=== PATIENT | female | born 1950 | race Asian ===

== ENCOUNTER 2017-12-19 22:38 | Emergency (ER) | payer MEDICARE, MEDICAID ==
--- NOTE | 2017-12-20 | RAD ---
RADIOGRAPH OF CHEST FRONTAL VIEW 12/19/17 COMPARISON: None available. INDICATION: Flu, short of breath. FINDINGS: No lobar consolidation, effusion or pneumothorax. The cardiac silhouette is accentuated by portable t echnique. There are leads overlying the chest limiting visualization. IMPRESSION: No focal consolidation. POS: [facility]
[2017-12-20 00:01] LABS: #Eosinphils 0.1 thou/uL (0.0-0.7); #Lymphocytes 2.3 thou/uL (1.20-3.40); #Monocytes 0.6 thou/uL (0.11-0.59); #Neutrophils 2.5 thou/uL (1.40-6.50); %Basophils 0.8 % (0.0-1.0); %Eosinophils 1.7 % (0.0-10.0); %Lymphocytes 40.9 % (21.0-51.0); %Monocytes 11.1 % (0.0-10.0); %Neutrophils 45.5 % (42.0-75.0); Hemoglobin 13.8 g/dL (12.0-16.0); Mean Corpuscular HGB CONC 32.7 g/dL (32.0-36.0); Mean Corpuscular Hemoglobin 33.2 pg (27.0-31.0); Mean Platelet Volume 7.5 fL (7.4-10.4); Platelet Count 180 thou/uL (130-400); RBC Distribution Width 11.2 % (11.5-14.5); Red Blood Cell (RBC) Count 4.16 mill/uL (4.20-5.40); White Blood Cell (WBC) Count 5.5 thou/uL (4.8-10.8)
[2017-12-20 00:25] LABS: ALT (SGPT) 32 U/L (8-55); AST (SGOT) 24 U/L (5-34); Albumin 3.7 g/dL (3.4-4.8); Alkaline Phosphatase 88 U/L (40-150); Anion Gap 11 mmol/L (10-20); BUN (Urea Nitrogen) 12 mg/dL (9.8-20.1); Bilirubin, Total 0.3 mg/dL (0.2-1.2); Calc. Creatinine Clearance 0 mL/min (70-130); Calcium 8.9 mg/dL (7.8-10.44); Carbon Dioxide 23 mmol/L (23-31); Chloride 111 mmol/L (98-107); Estimated GFR-MDRD 79; Globulin 2.9 g/dL (2.4-3.5); Glucose 116 mg/dL (80-115); Potassium 3.3 mmol/L (3.5-5.1); Protein, Total 6.6 g/dL (6.0-8.3); Sodium 142 mmol/L (136-145)
[2017-12-20 00:30] LABS: CKMB 1.5 ng/mL (0-6.6); Troponin I Less than 0.010 ng/mL (< 0.028)
[2017-12-20] MEDS ORDERED: Potassium Chloride 20 MEQ/100 ML PREMIX BAG ONE (00:50)
[2017-12-20] MEDS ORDERED: Potassium Chloride 20 MEQ TAB ONE ×2 (00:50→00:51)
--- NOTE | 2017-12-27 17:05 | EKG ---
Test Reason : Blood Pressure : / mmHG Vent. Rate : 068 BPM Atrial Rate : 068 BPM P-R Int : 156 ms QRS Dur : 082 ms QT Int : 416 ms P-R-T Axes : 070 031 -09 degrees QTc Int : 442 ms Normal sinus rhythm Possible Anterior infarct , age undetermined Abnormal ECG Confirmed by PAVEL JARAMILLO D.O. ([id number]), social media editor JUDIT CELESTE ([id number]) on 12/27/2017 5:04:20 PM Referred By: Confirmed By:PAVEL JARAMILLO D.O.
== END 2017-12-20 00:55 | disposition home or self-care (01) ==
LOC: ERS 22:38
DX: J02.9 Acute pharyngitis, unspecified (principal); E78.5 Hyperlipidemia, unspecified; I10 Essential (primary) hypertension; K21.9 Gastro-esophageal reflux disease without esophagitis; Z79.899 Other long term (current) drug therapy
CPT/HCPCS: 71045; 80053; 82553; 84484; 85025; 85379; 87081; 87430; 87804; 93005; J3480

== ENCOUNTER 2018-09-22 09:02 | Outpatient (CLI) | payer MEDICARE, MEDICAID ==
[2018-09-22 09:24] LABS: #Basophils 0.1 thou/uL (0.0-0.2); #Eosinphils 0.1 thou/uL (0.0-0.7); #Lymphocytes 0.8 thou/uL (1.20-3.40); #Monocytes 0.4 thou/uL (0.11-0.59); #Neutrophils 9.4 thou/uL (1.40-6.50); %Basophils 0.6 % (0.0-1.0); %Eosinophils 0.6 % (0.0-10.0); %Lymphocytes 7.6 % (21.0-51.0); %Neutrophils 87.1 % (42.0-75.0); Hemoglobin 15.4 g/dL (12.0-16.0); Mean Corpuscular HGB CONC 31.6 g/dL (32.0-36.0); Mean Corpuscular Hemoglobin 30.8 pg (27.0-31.0); Mean Corpuscular Volume 97.5 fL (78.0-98.0); Mean Platelet Volume 7.8 fL (7.4-10.4); Platelet Count 151 thou/uL (130-400); Red Blood Cell (RBC) Count 5.01 mill/uL (4.20-5.40); White Blood Cell (WBC) Count 10.8 thou/uL (4.8-10.8)
[2018-09-22 09:36] LABS: Bilirubin Negative (Negative); Blood, Urine Moderate (Negative); Clarity Clear (Clear); Glucose, Urine (Dipstick) Negative (Negative); Leukocyte Negative (Negative); Nitrite Negative (Negative); Protein, Urine (Dipstick) Negative (Neg-Trace); Urobilinogen 0.2 mg/dL (0.2-1.0); pH, Urine 8.5 (5.0-9.0)
[2018-09-22 09:42] LABS: ALT (SGPT) 31 U/L (8-55); Albumin 4.4 g/dL (3.4-4.8); Alkaline Phosphatase 82 U/L (40-150); Anion Gap 15 mmol/L (10-20); BUN (Urea Nitrogen) 13 mg/dL (9.8-20.1); Calc. Creatinine Clearance 0 mL/min (70-130); Calcium 9.2 mg/dL (7.8-10.44); Carbon Dioxide 21 mmol/L (23-31); Cardiac Risk 2.7 (Less than 4.5); Chloride 110 mmol/L (98-107); Cholesterol 175 mg/dl (< 200 Desired); Estimated GFR-MDRD Greater than 90; Globulin 3.4 g/dL (2.4-3.5); Glucose 103 mg/dL (80-115); HDL Cholesterol 64 mg/dL (>60 Neg Risk); LDL Cholesterol, Calculated 91 mg/dL; Potassium 4.3 mmol/L (3.5-5.1); Protein, Total 7.8 g/dL (6.0-8.3); Sodium 142 mmol/L (136-145); Triglycerides 99 mg/dL (Less than 150)
[2018-09-22 09:47] LABS: AST (SGOT) 32 U/L (5-34)
[2018-09-22 09:53] LABS: Thyroid Stimulating Hormone 0.6625 uIU/mL (0.35-4.94)
[2018-09-22 09:56] LABS: RBC/HPF 0-3 HPF (0-3); WBC/HPF None Seen HPF (0-3)
[2018-09-22 09:57] LABS: Bacteria/HPF None Seen HPF (None Seen); Squamous Epithelial 0-3 HPF (0-3)
--- NOTE | 2018-09-22 10:57 | RAD ---
LUMBAR SPINE FOUR VIEWS INCLUDING FLEXION AND EXTENSION: FINDINGS: Degenerative changes are present in the lower lumbar spine. No compression fracture or bony destruct ion is seen. There is grade 1 anterolisthesis of L4/L5. This measures 10 mm on neutral lateral view , 8 mm on the flexion view and 7 mm on the extension view. POS: [facility]
[2018-09-22 11:47] LABS: Vitamin D, 25 Hydroxy 25.1 ng/ml (> 30.0)
== END 2018-09-22 09:03 | disposition home or self-care (01) ==
LOC: SCSRAD 09:02
PROVIDERS: ATTEND Family Medicine
DX: M54.42 Lumbago with sciatica, left side (principal); I10 Essential (primary) hypertension; E78.2 Mixed hyperlipidemia; M81.0 Age-related osteoporosis without current pathological fracture
CPT/HCPCS: 36415; 72120; 74177; 80053; 80061; 81001; 81015; 82306; 82553; 83605; 83690; 84443; 84484; 85025; 87040; 87086; 93005; J2405

== ENCOUNTER 2018-09-22 20:16 | Emergency (ER) | payer MEDICARE, OTHER ==
[~2018-09-22 20:16] MED LIST: ISOVUE-370 76%-LOCM 1 ML ONE; Iopamidol 370 76% 50 ML VIAL FS ONE
[2018-09-22] MEDS ORDERED: Acetaminophen 500 MG TAB ONE (20:48)
[2018-09-22] MEDS ORDERED: Ondansetron PF 4 MG/2 ML Vial ONE (20:48)
[2018-09-22 21:16] LABS: #Eosinphils 0.1 thou/uL (0.0-0.7); #Lymphocytes 0.5 thou/uL (1.20-3.40); #Monocytes 0.6 thou/uL (0.11-0.59); #Neutrophils 9.4 thou/uL (1.40-6.50); %Basophils 0.2 % (0.0-1.0); %Eosinophils 1.1 % (0.0-10.0); %Lymphocytes 4.3 % (21.0-51.0); %Monocytes 5.9 % (0.0-10.0); %Neutrophils 88.5 % (42.0-75.0); Hemoglobin 15.2 g/dL (12.0-16.0); Mean Corpuscular HGB CONC 32.4 g/dL (32.0-36.0); Mean Corpuscular Hemoglobin 32.3 pg (27.0-31.0); Mean Corpuscular Volume 99.6 fL (78.0-98.0); Mean Platelet Volume 7.5 fL (7.4-10.4); Platelet Count 164 thou/uL (130-400); RBC Distribution Width 11.4 % (11.5-14.5); Red Blood Cell (RBC) Count 4.71 mill/uL (4.20-5.40); White Blood Cell (WBC) Count 10.6 thou/uL (4.8-10.8)
[2018-09-22 21:25] LABS: Bilirubin Negative (Negative); Blood, Urine Moderate (Negative); Clarity CLEAR (Clear); Glucose, Urine (Dipstick) Negative (Negative); Leukocyte Negative (Negative); Nitrite Negative (Negative); Protein, Urine (Dipstick) Negative (Neg-Trace); Specific Gravity, Urine 1.011 (1.002-1.036); Urobilinogen 0.2 mg/dL (0.2-1.0)
[2018-09-22 21:26] LABS: Bacteria/HPF None Seen HPF (None Seen); Hyaline Casts/LPF 0-3 HYALINE CAST LPF (0-3 Hyaline); RBC/HPF 21-50 HPF (0-3); Squamous Epithelial 0-3 HPF (0-3); WBC/HPF 0-3 HPF (0-3)
[2018-09-22 21:38] LABS: ALT (SGPT) 63 U/L (8-55); AST (SGOT) 66 U/L (5-34); Alkaline Phosphatase 81 U/L (40-150); Anion Gap 11 mmol/L (10-20); BUN (Urea Nitrogen) 9 mg/dL (9.8-20.1); Bilirubin, Total 0.9 mg/dL (0.2-1.2); CK (CPK) 81 U/L (29-168); Calc. Creatinine Clearance 0 mL/min (70-130); Calcium 8.7 mg/dL (7.8-10.44); Carbon Dioxide 22 mmol/L (23-31); Chloride 107 mmol/L (98-107); Estimated GFR-MDRD 90; Glucose 147 mg/dL (80-115); Lipase Less than 4 U/L (8-78); Potassium 4.4 mmol/L (3.5-5.1); Sodium 136 mmol/L (136-145)
[2018-09-22 21:43] LABS: CKMB 0.7 ng/mL (0-6.6); Troponin I Less than 0.010 ng/mL (< 0.028)
--- NOTE | 2018-09-22 23:09 | CT ---
CT ABDOMEN AND PELVIS WITH CONTRAST: 09/22/18 Multiple axial tomograms obtained through the abdomen and pelvis with IV enhancement. Oral contrast w as given. INDICATIONS: Abdominal pain. Lung bases appear clear. There is a bilobed cyst in the left lobe of the liver with total measurement s of approximately 2.5 cm. A 0.8 cm cyst in the right lobe of the liver. Liver, spleen and pancreas o therwise unremarkable. Adrenal glands and kidneys unremarkable. Small bowel loops unremarkable. Appen mackenzie unremarkable. Stool throughout the colon. Images through the pelvis unremarkable. Uterus and adne xa unremarkable. No mass or adenopathy. Aorta normal caliber. IMPRESSION: No evidence of acute process. POS: [facility]
== END 2018-09-22 22:52 | disposition home or self-care (01) ==
LOC: ERS 20:16
DX: R10.9 Unspecified abdominal pain (principal); B34.9 Viral infection, unspecified; E78.5 Hyperlipidemia, unspecified; I10 Essential (primary) hypertension; K21.9 Gastro-esophageal reflux disease without esophagitis; Z79.899 Other long term (current) drug therapy
CPT/HCPCS: 36415; 74177; 81015; 82553; 83605; 83690; 84484; 87040; 87086; 93005; J2405

== ENCOUNTER 2019-02-15 17:25 | Emergency (ER) | payer MEDICARE, MEDICAID ==
[2019-02-15 18:01] LABS: Bilirubin Negative (Negative); Blood, Urine Moderate (Negative); Clarity CLOUDY (Clear); Glucose, Urine (Dipstick) Negative (Negative); Leukocyte Moderate (Negative); Nitrite Negative (Negative); Protein, Urine (Dipstick) Trace mg/dL (Neg-Trace); Specific Gravity, Urine 1.011 (1.002-1.036); pH, Urine 7.5 (5.0-9.0)
[2019-02-15 18:02] LABS: Bacteria/HPF None Seen HPF (None Seen); Hyaline Casts/LPF 0-3 HYALINE CAST LPF (0-3 Hyaline); Pathc Cast-AUWi Flag 0.13 (0-2.49); RBC/HPF 21-50 HPF (0-3); Squamous Epithelial None Seen HPF (0-3)
== END 2019-02-15 19:00 | disposition home or self-care (01) ==
LOC: ERS 17:25
DX: N39.0 Urinary tract infection, site not specified (principal); F17.210 Nicotine dependence, cigarettes, uncomplicated; E78.5 Hyperlipidemia, unspecified; I10 Essential (primary) hypertension; K21.9 Gastro-esophageal reflux disease without esophagitis
CPT/HCPCS: 81003; 81015; 87086; 99283

== ENCOUNTER 2019-05-31 21:25 | Emergency (ER) | payer MEDICARE, MEDICAID ==
[2019-05-31] MEDS ORDERED: diphenhydrAMINE 25 MG CAP ONE (22:17)
[2019-05-31] MEDS ORDERED: Dexamethasone 4 mg/ml Vial ONE (22:19)
== END 2019-05-31 23:05 | disposition home or self-care (01) ==
LOC: ERS 21:25
DX: T78.1XXA Other adverse food reactions, not elsewhere classified, initial encounter (principal); E78.5 Hyperlipidemia, unspecified; K21.9 Gastro-esophageal reflux disease without esophagitis; I10 Essential (primary) hypertension; F17.210 Nicotine dependence, cigarettes, uncomplicated; Z79.899 Other long term (current) drug therapy
CPT/HCPCS: 99282; J1100; Q0163

== ENCOUNTER 2019-12-24 02:06 | Emergency (ER) | payer MEDICARE, MEDICAID ==
[2019-12-24 02:55] LABS: #Lymphocytes 1.6 thou/uL (1.20-3.40); #Monocytes 0.3 thou/uL (0.11-0.59); #Neutrophils 4.8 thou/uL (1.40-6.50); %Basophils 0.3 % (0.0-1.0); %Eosinophils 0.6 % (0.0-10.0); %Lymphocytes 23.8 % (21.0-51.0); %Monocytes 4.5 % (0.0-10.0); %Neutrophils 70.8 % (42.0-75.0); Hemoglobin 15.9 g/dL (12.0-16.0); Mean Corpuscular HGB CONC 33.6 g/dL (32.0-36.0); Mean Corpuscular Hemoglobin 33.2 pg (27.0-31.0); Mean Corpuscular Volume 98.8 fL (78.0-98.0); Platelet Count 223 thou/uL (130-400); RBC Distribution Width 11.9 % (11.5-14.5); Red Blood Cell (RBC) Count 4.78 mill/uL (4.20-5.40); White Blood Cell (WBC) Count 6.8 thou/uL (4.8-10.8)
[2019-12-24 03:18] LABS: ALT (SGPT) 31 U/L (8-55); AST (SGOT) 23 U/L (5-34); Albumin 4.4 g/dL (3.4-4.8); Alkaline Phosphatase 87 U/L (40-110); Anion Gap 13 mmol/L (10-20); BUN (Urea Nitrogen) 12 mg/dL (9.8-20.1); Bilirubin, Total 0.7 mg/dL (0.2-1.2); Calc. Creatinine Clearance 0 mL/min (70-130); Calcium 9.4 mg/dL (7.8-10.44); Carbon Dioxide 26 mmol/L (23-31); Chloride 110 mmol/L (98-107); Estimated GFR-MDRD 81; Globulin 3.1 g/dL (2.4-3.5); Glucose 130 mg/dL (80-115); Potassium 4.1 mmol/L (3.5-5.1); Protein, Total 7.5 g/dL (6.0-8.3); Sodium 145 mmol/L (136-145)
--- NOTE | 2019-12-24 08:12 | RAD ---
EXAM: CHEST ONE VIEW HISTORY: Stomach complaints. Patient states hard to breathe. COMPARISON: 12/19/2017 FINDINGS: Cardiac silhouette is magnified by projection but stable in size. The pulmonary vasculature is within normal limits. The lungs are clear. The osseous structures are intact. IMPRESSION: No acute cardiopulmonary process.
== END 2019-12-24 03:48 | disposition home or self-care (01) ==
LOC: ERS 02:06
DX: R53.83 Other fatigue (principal); I10 Essential (primary) hypertension; E78.5 Hyperlipidemia, unspecified; K21.9 Gastro-esophageal reflux disease without esophagitis; F17.210 Nicotine dependence, cigarettes, uncomplicated; Z79.899 Other long term (current) drug therapy
CPT/HCPCS: 36415; 71045; 80053; 84443; 84484; 85025

== ENCOUNTER 2020-03-20 20:26 | Emergency (ER) | payer MEDICARE, OTHER ==
[2020-03-20] MEDS ORDERED: Ondansetron PF 4 MG/2 ML Vial ONE (21:02)
[2020-03-20] MEDS ORDERED: Milk Of Magnesia 30 ML UDCUP ONE (21:02)
[2020-03-20] MEDS ORDERED: Lidocaine Viscous Sol 2% 15 ml UD Cup ONE (21:02)
[2020-03-20] MEDS ORDERED: Mag-Al 1200 mg/1200 mg/30 ML UDCUP ONE (21:03)
[2020-03-20 21:53] LABS: #Eosinphils 0.1 thou/uL (0.0-0.7); #Lymphocytes 2.6 thou/uL (1.20-3.40); #Monocytes 0.4 thou/uL (0.11-0.59); #Neutrophils 4.1 thou/uL (1.40-6.50); %Basophils 0.6 % (0.0-1.0); %Eosinophils 0.8 % (0.0-10.0); %Lymphocytes 35.6 % (21.0-51.0); %Monocytes 6.1 % (0.0-10.0); %Neutrophils 56.9 % (42.0-75.0); Hemoglobin 15.6 g/dL (12.0-16.0); Mean Corpuscular HGB CONC 32.9 g/dL (32.0-36.0); Mean Corpuscular Hemoglobin 33.6 pg (27.0-31.0); Mean Platelet Volume 7.6 fL (7.4-10.4); Platelet Count 196 thou/uL (130-400); RBC Distribution Width 11.4 % (11.5-14.5); Red Blood Cell (RBC) Count 4.65 mill/uL (4.20-5.40); White Blood Cell (WBC) Count 7.2 thou/uL (4.8-10.8)
--- NOTE | 2020-03-20 22:09 | ULT ---
EXAM: US Gallbladder RUQ CLINICAL HISTORY: Nausea. Epigastric pain.. COMPARISON: None. FINDINGS: Pancreas: The head of the pancreas has a normal echotexture. The remainder the pancreas is obscured by bowel gas Liver:Multiple anechoic foci in the hepatic parenchyma, compatible with cysts. Hepatic cysts were dem onstrated on a CT from 09/22/2018. Largest cyst is in the left hepatic lobe and measures 3.0 x 1.4 x 1.7 cm. Right hepatic lobe: 13.3 cm Gallbladder: No sonographic evidence of cholelithiasis, gallbladder wall thickening or pericholecysti c fluid. Morrison's sign:Negative Portal Vein: Patent. Appropriate directional flow Bile ducts: 0.14 cm common bile duct diameter Right kidney: No hydronephrosis. Right kidney measures 10.9 cm in length. IMPRESSION: 1. No sonographic evidence of cholelithiasis or cholecystitis.
[2020-03-20 22:17] LABS: ALT (SGPT) 14 U/L (8-55); AST (SGOT) 15 U/L (5-34); Albumin 4.3 g/dL (3.4-4.8); Alkaline Phosphatase 84 U/L (40-110); Anion Gap 13 mmol/L (10-20); BUN (Urea Nitrogen) 11 mg/dL (9.8-20.1); Bilirubin, Total 0.4 mg/dL (0.2-1.2); Calc. Creatinine Clearance 0 mL/min (70-130); Carbon Dioxide 27 mmol/L (23-31); Chloride 108 mmol/L (98-107); Estimated GFR-MDRD 78; Glucose 124 mg/dL (80-115); Lipase 8 U/L (8-78); Protein, Total 7.3 g/dL (6.0-8.3); Sodium 144 mmol/L (136-145)
--- NOTE | 2020-03-20 22:26 | RAD ---
Exam: Chest one view HISTORY:Weakness. Pain. Comparison: 12/24/2019 FINDINGS: Cardiac silhouette:Mild cardiomegaly Aorta: Unremarkable Pulmonary vessels: Normal Costophrenic angles: Clear LUNGS: No masses or consolidation. Pneumothorax: None Osseous abnormalities: None IMPRESSION: No acute cardiopulmonary process.
[2020-03-20 23:22] LABS: Bacteria/HPF None Seen HPF (None Seen); Bilirubin Negative (Negative); Blood, Urine Trace (Negative); Clarity Clear (Clear); Glucose, Urine (Dipstick) Normal (Negative); Leukocyte Negative Leu/uL (Negative); Nitrite Negative (Negative); Protein, Urine (Dipstick) Negative (Neg-Trace); RBC/HPF 0-3 HPF (0-3); Squamous Epithelial None Seen HPF (0-3); Urobilinogen Normal mg/dL (Less than 2); WBC/HPF None Seen HPF (0-3)
--- NOTE | 2020-03-22 16:10 | EKG ---
Test Reason : WEAKNESS Blood Pressure : / mmHG Vent. Rate : 064 BPM Atrial Rate : 064 BPM P-R Int : 152 ms QRS Dur : 074 ms QT Int : 436 ms P-R-T Axes : 034 008 -02 degrees QTc Int : 449 ms Normal sinus rhythm Normal ECG Confirmed by YOSHI OBONE DO ([id number]), rewrite editor JUDIT CELESTE ([id number]) on 03/22/2020 4:09:15 PM Referred By: Confirmed By:YOSHI BOONE DO
== END 2020-03-20 23:40 | disposition home or self-care (01) ==
LOC: ERS 20:26
DX: K21.0 Gastro-esophageal reflux disease with esophagitis (principal); E78.5 Hyperlipidemia, unspecified; I10 Essential (primary) hypertension; F41.9 Anxiety disorder, unspecified; F17.210 Nicotine dependence, cigarettes, uncomplicated; Z79.899 Other long term (current) drug therapy
CPT/HCPCS: 71045; 76705; 80053; 81003; 81015; 83690; 84484; 85025; 93005; 96374; J2405

== ENCOUNTER 2020-03-31 11:20 | Outpatient (CLI) | payer MEDICARE, MEDICAID ==
[2020-03-31] MEDS ORDERED: Iopamidol 370 76% 100 ML VIAL ONE (12:45)
--- NOTE | 2020-03-31 15:51 | CT ---
CT ABDOMEN AND PELVIS: DATE: 03/31/2020. COMPARISON: 09/22/2018. HISTORY: Nausea and abdominal distention. TECHNIQUE: Axial CT imaging at 5 mm intervals from the lung bases through the pubic symphysis with intravenous a nd oral contrast. Coronal and sagittal reformatted imaging obtained. FINDINGS: The imaged lung bases are unremarkable. No free intraperitoneal air. Stable macrolobulated hypodense lesion noted within the left lobe of the liver measuring 2.6 cm in tr ansverse dimension, unchanged when compared to the 2018 exam. There is a vague hypodense lesion with in the right lobe of the liver measuring 6-7 mm, unchanged as well. The gallbladder appears grossly unremarkable. The spleen, pancreas, adrenal glands, and kidneys demo nstrate no acute findings. There is no evidence for bowel inflammatory change or bowel obstruction. The vascular structures of the abdomen/pelvis appear patent. No abdominal or pelvic lymphadenopathy is noted. Multilevel bilateral lower lumbar spine facet hypertrophic change noted. There is neural foraminal stenosis bilaterally at L3-4, L4-5, and L5-S1. There is anterolisthesis of L4 on L5 measuring approximately 1 cm. No worrisome lytic or blastic bone lesions are noted. IMPRESSION: Numerous chronic findings as described above. No evidence for free intraperitoneal air, bowel obstru ction, or bowel inflammatory change. POS: [facility]
== END 2020-03-31 11:21 | disposition home or self-care (01) ==
LOC: CT 11:20
PROVIDERS: ATTEND Internal Medicine Gastroenterology
DX: R10.9 Unspecified abdominal pain (principal); M48.061 Spinal stenosis, lumbar region without neurogenic claudication; M48.07 Spinal stenosis, lumbosacral region; K76.9 Liver disease, unspecified; M43.16 Spondylolisthesis, lumbar region
CPT/HCPCS: 74177; Q9967

== ENCOUNTER 2020-10-09 21:06 | Inpatient (IN) | payer MEDICARE, MEDICAID ==
[2020-10-09 21:36] LABS: #Basophils 0.1 thou/uL (0.0-0.2); #Eosinphils 0.1 thou/uL (0.0-0.7); #Lymphocytes 2.6 thou/uL (1.20-3.40); #Monocytes 0.5 thou/uL (0.11-0.59); %Basophils 0.8 % (0.0-1.0); %Eosinophils 0.9 % (0.0-10.0); %Lymphocytes 25.3 % (21.0-51.0); %Neutrophils 68.1 % (42.0-75.0); Hemoglobin 15.3 g/dL (12.0-16.0); Mean Corpuscular HGB CONC 33.2 g/dL (32.0-36.0); Mean Corpuscular Hemoglobin 32.9 pg (27.0-31.0); Mean Corpuscular Volume 99.1 fL (78.0-98.0); Mean Platelet Volume 7.3 fL (7.4-10.4); Platelet Count 188 thou/uL (130-400); RBC Distribution Width 11.7 % (11.5-14.5); Red Blood Cell (RBC) Count 4.67 mill/uL (4.20-5.40); White Blood Cell (WBC) Count 10.3 thou/uL (4.8-10.8)
--- NOTE | 2020-10-09 21:48 | RAD ---
XR Chest 1 View Portable History: Chest pain Comparison: Radiograph March 20, 2020 Findings: Heart size is mildly enlarged. Pulmonary arteries are distended. No confluent airspace cons olidation, pneumothorax or effusion. No acute osseous abnormality. Impression: Chronic findings. No acute intrathoracic abnormality.
[2020-10-09 21:53] LABS: ALT (SGPT) 16 U/L (8-55); AST (SGOT) 14 U/L (5-34); Albumin 4.2 g/dL (3.4-4.8); Alkaline Phosphatase 83 U/L (40-110); Anion Gap 14 mmol/L (10-20); BUN (Urea Nitrogen) 11 mg/dL (9.8-20.1); Bilirubin, Total 0.4 mg/dL (0.2-1.2); Calc. Creatinine Clearance 0 mL/min (70-130); Calcium 8.4 mg/dL (7.8-10.44); Carbon Dioxide 24 mmol/L (23-31); Chloride 110 mmol/L (98-107); Globulin 2.6 g/dL (2.4-3.5); Glucose 128 mg/dL (80-115); Lipase 10 U/L (8-78); Potassium 3.7 mmol/L (3.5-5.1); Protein, Total 6.8 g/dL (6.0-8.3); Sodium 144 mmol/L (136-145)
--- NOTE | 2020-10-09 23:46 | PDOC.HHP ---
Hospitalist HPI - History of Present Illness Chest pain History of Present Illness: PCP: Dr. Navarro The patient is a 70-year-old female with a past medical history significant for HTN, HLD, GERD, anxiety and smoker that presents to the emergency department via EMS for the above complaint. The patient reports the acute onset of left-sided chest pain, 1 hour prior to arrival, nonradiating, described as a stabbing, constant, exacerbated relieved by nothing. She reports associated nausea. She denies any heart palpitations, lightheadedness or swelling to lower extremities. She denies any shortness of breath, wheezing or cough. She has no history of COPD/asthma. No known sick contacts. She denies any history of DVT/PE. She has no history of illicit drug use. She denies any abdominal pain, vomiting, diarrhea, hematochezia/melena. She denies any dysuria or hematuria. EMS was called. Upon arrival, the patient was found to be hypertensive with a normal pulse, respirations, SPO2 and afebrile. The patient was given full dose aspirin and taken to the emergency department for further evaluation. He was resolved on arrival to the ER. ED Course: VITAL SIGNS FriOct 09, 2020 21:11 LEONCIO Corea, Jeannine BP: 160/70, Pulse: 74, Resp: 18, Pain: 3, O2 sat: 99 on (Room Air), Time: 10/09/2020 21:11. Medications: None Hospitalist ROS - Review of Systems All other systems reviewed; all pertinent +/- noted in HPI/Subj - Medication Medications: Unable to reconcile at bedside, patient poor historian. Allergies: No known drug allergies Hospitalist History - Past Medical History Source: patient, RN notes reviewed Cardiac: reports: HTN, Hyperlipidemia Gastrointestinal: reports: GERD Psych: reports: Anxiety - Past Surgical History Past Surgical History: reports: Other (Bilateral eye surgery, ovarian tumor surgery) - Family History Family History: reports: cardiac disorder - Social History Smoking Status: Current every day smoker (Half to 1 pack/day greater than 30- year history) Tobacco Type: cigarettes Alcohol: reports: None Drugs: reports: none Living Situation: With Family Activity level: independent ambulation - Exam General Appearance: NAD, awake alert. negative: ill appearing Eye: anicteric sclera ENT: normocephalic atraumatic Neck: supple, symmetric Heart: RRR, no murmur, no gallops, no rubs, normal peripheral pulses Respiratory: CTAB, no wheezes, no rales, no ronchi, normal chest expansion, no tachypnea Gastrointestinal: soft, non-tender, non-distended, normal bowel sounds, no b ruit, no guarding, no rigidity Extremities: no cyanosis, no edema Skin: no rashes Neurological: no focal deficits Musculoskeletal: normal tone, normal strength Psychiatric: normal affect, A&O x 3 Hospitalist Results - Labs Result Diagrams: 10/09/20 21:25 10/09/20 21:25 Lab results: WBC 10.3 thou/uL (4.8-10.8) 10/09/20 21:25 Hgb 15.3 g/dL (12.0-16.0) 10/09/20 21:25 Hct 46.3 % (36.0-47.0) 10/09/20 21:25 MCV 99.1 fL (78.0-98.0) H 10/09/20 21:25 Plt Count 188 thou/uL (130-400) 10/09/20 21:25 Neutrophils % 68.1 % (42.0-75.0) 10/09/20 21:25 Sodium 144 mmol/L (136-145) 10/09/20 21:25 Potassium 3.7 mmol/L (3.5-5.1) 10/09/20 21:25 Chloride 110 mmol/L (98-107) H 10/09/20 21:25 Carbon Dioxide 24 mmol/L (23-31) 10/09/20 21:25 BUN 11 mg/dL (9.8-20.1) 10/09/20 21:25 Creatinine 0.68 mg/dL (0.6-1.1) 10/09/20 21:25 Glucose 128 mg/dL (80-115) H 10/09/20 21:25 Calcium 8.4 mg/dL (7.8-10.44) 10/09/20 21:25 Total Bilirubin 0.4 mg/dL (0.2-1.2) 10/09/20 21:25 AST 14 U/L (5-34) 10/09/20 21:25 ALT 16 U/L (8-55) 10/09/20 21:25 Alkaline Phosphatase 83 U/L (40-110) 10/09/20 21:25 Troponin I Less than 0.010 ng/mL (< 0.028) 10/09/20 21:25 B-Natriuretic Peptide 31.5 pg/mL (0-100) 10/09/20 21:25 Serum Total Protein 6.8 g/dL (6.0-8.3) 10/09/20 21:25 Albumin 4.2 g/dL (3.4-4.8) 10/09/20 21:25 Lipase 10 U/L (8-78) 10/09/20 21:25 - EKG Interpretation EK lead EKG interpreted by Emergency Department Physician at time of study, 12 lead EKG shows normal sinus rhythm, Rate (beats per minute): 69, with no ectopics, Conduction normal, ST segments normal, T waves normal. - Radiology Interpretation Chest x-ray Status: report reviewed by me Additional Comment: Impression: Chronic findings. No acute intrathoracic abnormality. Hospitalist H&P A/P - Problem (1) Chest pain Code(s): R07.9 - CHEST PAIN, UNSPECIFIED Status: Acute (2) Hypertension Code(s): I10 - ESSENTIAL (PRIMARY) HYPERTENSION Status: Chronic (3) Hyperlipidemia Code(s): E78.5 - HYPERLIPIDEMIA, UNSPECIFIED Status: Chronic (4) Tobacco abuse Code(s): Z72.0 - TOBACCO USE Status: Chronic (5) GERD (gastroesophageal reflux disease) Code(s): K21.9 - GASTRO-ESOPHAGEAL REFLUX DISEASE WITHOUT ESOPHAGITIS Status: Chronic (6) Anxiety Code(s): F41.9 - ANXIETY DISORDER, UNSPECIFIED Status: Chronic - Plan Plan: 70/F with PMH HTN, HLD, smoker presents for chest pain. Admit to telemetry floor, observation status. Expected length of stay less than 2 midnights. Presented hypertensive, NL HR, RR, SPO2, afebrile. EKG normal sinus rhythm, no ST elevations. CXR no acute process. Troponin negative, BNP 31 #Chest pain Heart score 5 Trend troponins, check FLP, TSH, mag level. Continue aspirin, start statin. N.p.o. Nuc med stress test. #Hypertension Presented hypertensive. Unable to reconcile home medications with patient. Nursing to reconcile home meds. We will restart home medication when reconciled by nursing. #Hyperlipidemia Check FLP. Start atorvastatin 40 mg nightly. #Tobacco abuse Half pack to 1 pack/day x 30-year history. Unwilling to quit. Start nicotine patch. Counseled tobacco cessation. #GERD Takes unknown home medication. Start Pepcid twice daily. #Anxiety Denies SI/HI. Takes unknown home medications. We will restart home medications reconciled by nursing. SCDs for DVT prophylaxis. Pepcid for GI prophylaxis. Full code. Discussed the case with Dr. Marvin Francois.
[2020-10-09] MEDS ORDERED: Nitroglycerin 0.4 MG TAB (25 Tab Bottle) SL PRN (23:53)
[2020-10-09] MEDS ORDERED: Acetaminophen 325 MG TAB PO PRN (23:58)
[2020-10-09] MEDS ORDERED: Ondansetron ODT 4 MG TAB PO PRN (23:58)
[2020-10-09] MEDS ORDERED: Ondansetron PF 4 MG/2 ML Vial IVP PRN (23:58)
[2020-10-09] MEDS ORDERED: Calcium Carbonate 500 MG ChewTAB PO PRN (23:58)
[2020-10-10] MEDS ORDERED: Aspirin 325 MG TAB PO SCH (00:30)
[2020-10-10] MEDS ORDERED: Nicotine 14 MG PATCH TD SCH ×2 (02:00→21:00)
[2020-10-10 02:02] LABS: Troponin I 0.015 ng/mL (< 0.028)
[2020-10-10 03:34] LABS: #Basophils 0.1 thou/uL (0.0-0.2); #Lymphocytes 2.5 thou/uL (1.20-3.40); #Monocytes 0.4 thou/uL (0.11-0.59); #Neutrophils 6.2 thou/uL (1.40-6.50); %Basophils 0.8 % (0.0-1.0); %Eosinophils 0.4 % (0.0-10.0); %Lymphocytes 26.9 % (21.0-51.0); %Monocytes 4.8 % (0.0-10.0); %Neutrophils 67.2 % (42.0-75.0); Hemoglobin 14.6 g/dL (12.0-16.0); Mean Corpuscular HGB CONC 33.6 g/dL (32.0-36.0); Mean Corpuscular Hemoglobin 33.2 pg (27.0-31.0); Mean Corpuscular Volume 98.9 fL (78.0-98.0); Mean Platelet Volume 7.5 fL (7.4-10.4); Platelet Count 178 thou/uL (130-400); RBC Distribution Width 11.7 % (11.5-14.5); Red Blood Cell (RBC) Count 4.41 mill/uL (4.20-5.40); White Blood Cell (WBC) Count 9.2 thou/uL (4.8-10.8)
[2020-10-10 03:53] LABS: Anion Gap 14 mmol/L (10-20); BUN (Urea Nitrogen) 15 mg/dL (9.8-20.1); Calc. Creatinine Clearance 0 mL/min (70-130); Calcium 8.4 mg/dL (7.8-10.44); Carbon Dioxide 21 mmol/L (23-31); Cardiac Risk 2.7 (Less than 4.5); Chloride 111 mmol/L (98-107); Cholesterol 166 mg/dl (< 200 Desired); Glucose 128 mg/dL (80-115); HDL Cholesterol 61 mg/dL (>60 Neg Risk); LDL Cholesterol, Calculated 94 mg/dL; Potassium 3.9 mmol/L (3.5-5.1); Sodium 142 mmol/L (136-145); Triglycerides 57 mg/dL (Less than 150)
[2020-10-10 03:57] LABS: Troponin I Less than 0.010 ng/mL (< 0.028)
[2020-10-10] MEDS ORDERED: Famotidine 20 MG TAB ONE (09:10)
[2020-10-10] MEDS ORDERED: Aspirin 325 MG TAB ONE (09:10)
[2020-10-10] MEDS: Famotidine 20 MG TAB PO SCH ×2 (10:55→21:12)
[2020-10-10] MEDS: Aspirin 325 mg Enteric Coated Tablet PO SCH (10:55)
[2020-10-10] MEDS ORDERED: Regadenoson 0.4 MG/5 ML SYRINGE ONE (12:51)
[2020-10-10 13:12] LABS: SARS-CoV-2 MS2 Positive; SARS-CoV-2 N Gene Negative; SARS-CoV-2 S Gene Negative; SARS-CoV-2 by NAA Not Detected (NotDetected); SARS-CoV-2 orf1ab Negative
--- NOTE | 2020-10-10 15:28 | NM ---
NUCLEAR MEDICINE CARDIAC MYOCARDIAL PERFUSION SPECT EJECTION FRACTION STUDY WALL MOTION CINE: DATE: 10/10/2020 HISTORY: 70-year-old hypertensive female smoker with dyslipidemia presents with chest pain TECHNIQUE: Number of days: 1 Rest study: Technetium 99m-sestamibi (Cardiolite) dose:10.4 mCi Pharmacologic stress: Lexiscan dose: 0.4 mg Stress study: Technetium 99m-sestamibi (Cardiolite) dose:31.8 mCi FINDINGS: CARDIAC (MYOCARDIAL PERFUSION) SPECT Subtle questionable finding of a small focus of reversible myocardial perfusion defect at the lateral portion of the left ventricular myocardium towards the apex. No fixed myocardial perfusion defect. EJECTION FRACTION STUDY Left ventricular EF = 90 % WALL MOTION CINE Normal IMPRESSION: Subtle, questionable finding of a small possible region of reversible ischemia involving left circumf clara territory
[2020-10-10] MEDS ORDERED: Atorvastatin Calcium 40 MG TAB PO SCH (21:00)
--- NOTE | 2020-10-11 07:37 | PDOC.HOSPP ---
- Subjective Encounter Date: 10/10/20 Encounter Time: 15:00 Subjective: Patient up in bed no complaints. - Objective Vital Signs & Weight: Vital Signs (12 hours) Temp Pulse Resp BP BP Pulse Ox 10/11/20 03:51 97.9 F 66 18 132/68 97 10/10/20 23:42 98 10/10/20 19:55 98.0 F 69 16 141/64 H 98 Weight Weight 160 lb 9.6 oz I&O: 10/10/20 10/11/20 10/12/20 06:59 06:59 06:59 Intake Total 720 Balance 720 Result Diagrams: 10/10/20 03:18 10/10/20 03:18 Hospitalist ROS - Review of Systems Cardiovascular: denies: chest pain, palpitations, orthopnea, paroxysmal noc. dyspnea, edema, light headedness, other Gastrointestinal: denies: nausea, vomiting, abdominal pain, diarrhea, constipation, melena, hematochezia, other Genitourinary: denies: dysuria, frequency, incontinence, hematuria, retention, other - Medication Medications: Active Medications Generic Name Dose Route Start Last Admin Trade Name Freq PRN Reason Stop Dose Admin Aspirin 325 mg 10/10/20 09:00 10/10/20 10:55 Aspirin 325 Mg Enteric Coated Tablet PO 325 mg DAILY MARVIN Administration Atorvastatin Calcium 40 mg 10/10/20 21:00 10/10/20 21:12 Atorvastatin Calcium 40 Mg Tab PO 40 mg HS MARVIN Administration Famotidine 20 mg 10/10/20 09:00 10/10/20 21:12 Famotidine 20 Mg Tab PO 20 mg BID MARVIN Administration Nicotine 14 mg 10/10/20 21:00 10/10/20 21:12 Nicotine 14 Mg Patch TD 14 mg 2100 MARVIN Administration - Exam Neck: negative: supple, symmetric, no JVD, no thyromegaly, no lymphadenopathy, no carotid bruit, JVD Heart: negative: RRR, no murmur, no gallops, no rubs, normal peripheral pulses, irregular, diminshed peripheral pulses, murmur present, II/IV, III/IV Respiratory: negative: CTAB, no wheezes, no rales, no ronchi, normal chest expansion, no tachypnea, normal percussion, rales, rhonchi, tachypneic, wheezes Gastrointestinal: negative: soft, non-tender, non-distended, normal bowel sounds, no palpable masses, no hepatomegaly, no splenomegaly, no bruit, no guarding, no rigidity, tender to palpation, distended, diminished bowl sounds, voluntary guarding Hosp A/P (1) Chest pain Code(s): R07.9 - CHEST PAIN, UNSPECIFIED Status: Acute (2) Anxiety Code(s): F41.9 - ANXIETY DISORDER, UNSPECIFIED Status: Chronic (3) Hyperlipidemia Code(s): E78.5 - HYPERLIPIDEMIA, UNSPECIFIED Status: Chronic (4) Hypertension Code(s): I10 - ESSENTIAL (PRIMARY) HYPERTENSION Status: Chronic - Plan Patient's stress test was abnormal. Using [place]ian canoe builder this was discussed with patient. Will get cardiology to evaluate the patient. Patient on aspirin and statin.
[2020-10-11] MEDS ORDERED: FLU VACC QS2020-21(65YR UP)/PF 240 MCG/0.7 ML SYRINGE IM ONE (09:00)
[2020-10-11] MEDS ORDERED: Iopamidol 370 76% 100 ML VIAL ONE (10:27)
[2020-10-11] MEDS ORDERED: Communication Order-Pharmacy FS SCH (11:30)
[2020-10-11] MEDS ORDERED: Sodium Chloride 0.9% 1,000 ML IV SCH (11:30)
[2020-10-11] MEDS ORDERED: Heparin 10,000 UNITS/ 10 ML VIAL ONE (12:12)
[2020-10-11] MEDS ORDERED: Verapamil 5 MG/2 ML VIAL ONE (12:12)
[2020-10-11] MEDS ORDERED: Nitroglycerin 100MG/250ML BOT 250 ML ONE (12:13)
[2020-10-11] MEDS ORDERED: Sodium Chloride 0.9% 200 ML IV PRN (12:59)
[2020-10-11] MEDS ORDERED: Nitroglycerin 0.4 MG TAB (25 Tab Bottle) SL PRN (12:59)
[2020-10-11] MEDS ORDERED: Acetaminophen/Codeine 30-300mg Tablet PO PRN ×2 (12:59)
[2020-10-11] MEDS: Famotidine 20 MG TAB PO SCH (13:09)
[2020-10-11 17:26] VITALS: BP 134/63; TEMP 98.3
[2020-10-11] MEDS: Aspirin 325 mg Enteric Coated Tablet PO SCH (18:07)
--- NOTE | 2020-10-12 08:16 | PDOC.DS.DS ---
Provider - Provider Date of Admission: 10/11/20 09:39 Date of Discharge: 10/11/20 Admitting Provider: Marvin Huang MD Consultations: Cardiology Primary Care Physician: Giles Navarro MD Course - Hospital Course Hospital Course: Patient is a very pleasant 70-year-old female who initially presented to the hospital for chest pain. She had a stress test which was abnormal. Patient underwent a cardiac catheterization which did not show any acute abnormalities. At this time she was discharged home. She was asked to follow-up with her [facility] doctor. Resuscitation Status: 10/09/20 23:58 Resuscitation Status Routine Co-Sign Provider: Resuscitation Status: FULL: Full Resuscitation Discussed with: PATIENT - Labs Lab Results: 10/10/20 03:18 10/10/20 03:18 - Physical Exam Vitals: Weight Weight 160 lb 9.6 oz Physical Exam: The patient was seen and examined on the day of discharge. Problem - Problem (1) Chest pain Code(s): R07.9 - CHEST PAIN, UNSPECIFIED Status: Acute (2) Anxiety Code(s): F41.9 - ANXIETY DISORDER, UNSPECIFIED Status: Chronic (3) Hyperlipidemia Code(s): E78.5 - HYPERLIPIDEMIA, UNSPECIFIED Status: Chronic (4) Hypertension Code(s): I10 - ESSENTIAL (PRIMARY) HYPERTENSION Status: Chronic Plan - Discharge Medications Prescriptions: Aspirin Chewable [Aspirin Chewable Tablet] 81 mg PO DAILY #30 tab Home Medications: Medication Instructions Recorded Confirmed Type Aspirin Chewable [Aspirin Chewable 81 mg PO DAILY #30 tab 10/11/20 Rx Tablet] Allergies: No Known Drug Allergies Allergy (Unverified 10/10/20 00:29) - Discharge Instructions Discharge Instructions:: please do not smoke Activity:: Activity as Tolerated Nourishment:: Heart Healthy Diet - Follow up Plan Referrals: Giles Navarro MD [Primary Care Provider] - (FOLLOW UP WITH YOUR PRIMARY CARE PROVIDER WITHIN 7 DAYS ) Disposition: HOME Quality - Care Measures CORE MEASURES:: N/A
== END 2020-10-11 18:30 | disposition home or self-care (01) | DRG 287 ==
LOC: ERS 21:06 → ERHOLD 23:53 → 2NO 10-10 15:47 → OBSVTOIN 10-11 09:39
PROVIDERS: ADMIT Internal Medicine; ATTEND Internal Medicine
PROC: 4A023N7 Measurement of Cardiac Sampling and Pressure, Left Heart, Percutaneous Approach (ICD-10-PCS; principal; 2020-10-11)
PROC: B2111ZZ Fluoroscopy of Multiple Coronary Arteries using Low Osmolar Contrast (ICD-10-PCS; 2020-10-11)
DX: R07.9 Chest pain, unspecified (principal); I10 Essential (primary) hypertension; Z20.828 Contact with and (suspected) exposure to other viral communicable diseases; E78.5 Hyperlipidemia, unspecified; K21.9 Gastro-esophageal reflux disease without esophagitis; F17.210 Nicotine dependence, cigarettes, uncomplicated; F41.9 Anxiety disorder, unspecified; Z98.890 Other specified postprocedural states; Z71.6 Tobacco abuse counseling
CPT/HCPCS: 36415; 71045; 78452; 80048; 80053; 80061; 83690; 83735; 83880; 84443; 84484; 85025; 87635; 93005; 93017; 93458; 94760; A9500; G0378; J1644; J2785; Q9967; U0003

== ENCOUNTER 2020-10-12 16:39 | Emergency (ER) | payer MEDICARE, MEDICAID ==
[2020-10-12] MEDS ORDERED: Ondansetron PF 4 MG/2 ML Vial ONE (16:54)
[2020-10-12] MEDS ORDERED: Lidocaine Viscous Sol 2% 15 ml UD Cup ONE (17:32)
[2020-10-12] MEDS ORDERED: Mag-Al 1200 mg/1200 mg/30 ML UDCUP ONE (17:32)
--- NOTE | 2020-10-12 17:35 | RAD ---
XR Chest 1 View Portable History: Chest pain Comparison: Radiograph October 09, 2020 Findings: Heart size mildly enlarged. Lungs are clear. No pneumothorax or effusion. Cardiac silhouett e and mediastinal contours are within normal limits. No acute osseous abnormality. Impression: Mild cardiomegaly otherwise no acute intrathoracic abnormality.
[2020-10-12] MEDS ORDERED: Aspirin Chewable 81 MG TAB ONE (18:06)
[2020-10-12 18:08] LABS: Bacteria/HPF None Seen HPF (None Seen); Bilirubin Negative (Negative); Blood, Urine 1+ (Negative); Calcium Oxalate Crystals Rare HPF (None Seen); Clarity Clear (Clear); Glucose, Urine (Dipstick) Normal (Negative); Ketone, Urine 10 mg/dL (Negative); Leukocyte Negative Leu/uL (Negative); Nitrite Negative (Negative); Protein, Urine (Dipstick) Negative (Neg-Trace); Specific Gravity, Urine 1.008 (1.002-1.036); Squamous Epithelial 0-3 HPF (0-3); Urobilinogen Normal mg/dL (Less than 2); WBC/HPF 0-3 HPF (0-3); pH, Urine 6.5 (5.0-9.0)
[2020-10-12 18:24] LABS: #Monocytes 0.6 thou/uL (0.11-0.59); %Basophils 0.4 % (0.0-1.0); %Eosinophils 0.4 % (0.0-10.0); %Lymphocytes 23.2 % (21.0-51.0); %Monocytes 6.7 % (0.0-10.0); %Neutrophils 69.4 % (42.0-75.0); Hemoglobin 15.1 g/dL (12.0-16.0); Mean Corpuscular HGB CONC 33.2 g/dL (32.0-36.0); Mean Corpuscular Hemoglobin 32.9 pg (27.0-31.0); Mean Corpuscular Volume 99.2 fL (78.0-98.0); Mean Platelet Volume 7.5 fL (7.4-10.4); Platelet Count 185 thou/uL (130-400); RBC Distribution Width 11.6 % (11.5-14.5); Red Blood Cell (RBC) Count 4.58 mill/uL (4.20-5.40); White Blood Cell (WBC) Count 8.7 thou/uL (4.8-10.8)
[2020-10-12 18:46] LABS: ALT (SGPT) 16 U/L (8-55); AST (SGOT) 17 U/L (5-34); Albumin 4.1 g/dL (3.4-4.8); Alkaline Phosphatase 78 U/L (40-110); Anion Gap 16 mmol/L (10-20); BUN (Urea Nitrogen) 17 mg/dL (9.8-20.1); Bilirubin, Total 0.7 mg/dL (0.2-1.2); CK (CPK) 92 U/L (29-168); Calc. Creatinine Clearance 0 mL/min (70-130); Calcium 8.4 mg/dL (7.8-10.44); Carbon Dioxide 23 mmol/L (23-31); Chloride 109 mmol/L (98-107); Globulin 2.5 g/dL (2.4-3.5); Glucose 130 mg/dL (80-115); Lipase 5 U/L (8-78); Potassium 3.9 mmol/L (3.5-5.1); Protein, Total 6.6 g/dL (6.0-8.3); Sodium 144 mmol/L (136-145)
== END 2020-10-12 20:38 | disposition home or self-care (01) ==
LOC: ERS 16:39
DX: R00.2 Palpitations (principal); K21.9 Gastro-esophageal reflux disease without esophagitis; E78.5 Hyperlipidemia, unspecified; I10 Essential (primary) hypertension; F17.210 Nicotine dependence, cigarettes, uncomplicated; Z79.82 Long term (current) use of aspirin; Z79.899 Other long term (current) drug therapy
CPT/HCPCS: 71045; 80053; 81003; 81015; 82550; 83690; 84484; 85025; 85379; 93005; 94760; 96374; J2405

== ENCOUNTER 2020-11-04 19:06 | Emergency (ER) | payer MEDICARE, MEDICAID ==
[2020-11-04] MEDS ORDERED: Lidocaine Viscous Sol 2% 15 ml UD Cup ONE (19:33)
[2020-11-04] MEDS ORDERED: Mag-Al 1200 mg/1200 mg/30 ML UDCUP ONE (19:33)
--- NOTE | 2020-11-04 19:37 | RAD ---
EXAM: CHEST ONE VIEW HISTORY: Chest pain and generalized weakness. Nausea and vomiting. COMPARISON: 10/12/2020 FINDINGS: Cardiac silhouette remains mildly enlarged. Pulmonary vasculature is within normal limits. Lungs zac in clear. Chest is stable compared to prior study. IMPRESSION: Stable chest with mild cardiomegaly. No acute cardiopulmonary process.
[2020-11-04 19:45] LABS: #Basophils 0.1 thou/uL (0.0-0.2); #Eosinphils 0.1 thou/uL (0.0-0.7); #Lymphocytes 3.3 thou/uL (1.20-3.40); #Monocytes 0.6 thou/uL (0.11-0.59); %Basophils 1.2 % (0.0-1.0); %Eosinophils 1.1 % (0.0-10.0); %Monocytes 7.2 % (0.0-10.0); %Neutrophils 49.5 % (42.0-75.0); Hemoglobin 14.8 g/dL (12.0-16.0); Mean Corpuscular HGB CONC 33.5 g/dL (32.0-36.0); Mean Corpuscular Hemoglobin 33.7 pg (27.0-31.0); Platelet Count 197 thou/uL (130-400); RBC Distribution Width 11.8 % (11.5-14.5); Red Blood Cell (RBC) Count 4.39 mill/uL (4.20-5.40)
[2020-11-04 20:08] LABS: ALT (SGPT) 20 U/L (8-55); AST (SGOT) 15 U/L (5-34); Albumin 4.1 g/dL (3.4-4.8); Alkaline Phosphatase 93 U/L (40-110); Anion Gap 12 mmol/L (10-20); BUN (Urea Nitrogen) 13 mg/dL (9.8-20.1); Bilirubin, Total 0.3 mg/dL (0.2-1.2); CK (CPK) 79 U/L (29-168); Calc. Creatinine Clearance 0 mL/min (70-130); Calcium 8.7 mg/dL (7.8-10.44); Carbon Dioxide 27 mmol/L (23-31); Chloride 108 mmol/L (98-107); Globulin 2.6 g/dL (2.4-3.5); Glucose 185 mg/dL (80-115); Potassium 4.2 mmol/L (3.5-5.1); Protein, Total 6.7 g/dL (6.0-8.3); Sodium 143 mmol/L (136-145)
== END 2020-11-04 20:35 | disposition home or self-care (01) ==
LOC: ERS 19:06
DX: R00.2 Palpitations (principal); Z79.899 Other long term (current) drug therapy; Z79.82 Long term (current) use of aspirin; K21.9 Gastro-esophageal reflux disease without esophagitis; E78.5 Hyperlipidemia, unspecified; I10 Essential (primary) hypertension; F17.210 Nicotine dependence, cigarettes, uncomplicated
CPT/HCPCS: 36415; 71045; 80053; 82550; 84484; 85025; 93005

== ENCOUNTER 2021-03-18 16:40 | Emergency (ER) | payer MEDICARE, MEDICAID ==
[2021-03-18 17:40] LABS: #Basophils 0.1 thou/uL (0.0-0.2); #Eosinphils 0.2 thou/uL (0.0-0.7); #Monocytes 0.5 thou/uL (0.11-0.59); #Neutrophils 4.9 thou/uL (1.40-6.50); %Basophils 0.8 % (0.0-1.0); %Eosinophils 2.1 % (0.0-10.0); %Lymphocytes 34.9 % (21.0-51.0); %Monocytes 5.9 % (0.0-10.0); %Neutrophils 56.2 % (42.0-75.0); Hemoglobin 15.2 g/dL (12.0-16.0); Mean Corpuscular HGB CONC 34.1 g/dL (32.0-36.0); Mean Corpuscular Hemoglobin 33.9 pg (27.0-31.0); Mean Corpuscular Volume 99.5 fL (78.0-98.0); Mean Platelet Volume 7.4 fL (7.4-10.4); Platelet Count 216 thou/uL (130-400); RBC Distribution Width 11.8 % (11.5-14.5); Red Blood Cell (RBC) Count 4.48 mill/uL (4.20-5.40); White Blood Cell (WBC) Count 8.6 thou/uL (4.8-10.8)
[2021-03-18 17:59] LABS: ALT (SGPT) 21 U/L (8-55); AST (SGOT) 16 U/L (5-34); Albumin 4.3 g/dL (3.4-4.8); Alkaline Phosphatase 105 U/L (40-110); Anion Gap 14 mmol/L (10-20); BUN (Urea Nitrogen) 12 mg/dL (9.8-20.1); Bilirubin, Total 0.4 mg/dL (0.2-1.2); Calc. Creatinine Clearance 0 mL/min (70-130); Calcium 9.4 mg/dL (7.8-10.44); Carbon Dioxide 23 mmol/L (23-31); Chloride 109 mmol/L (98-107); Globulin 2.8 g/dL (2.4-3.5); Glucose 179 mg/dL (80-115); Lipase 10 U/L (8-78); Potassium 3.7 mmol/L (3.5-5.1); Protein, Total 7.1 g/dL (5.8-8.1); Sodium 142 mmol/L (136-145)
[2021-03-18] MEDS ORDERED: Mag-Al 1200 mg/1200 mg/30 ML UDCUP ONE (18:01)
[2021-03-18] MEDS ORDERED: Lidocaine Viscous Sol 2% 15 ml UD Cup ONE (18:01)
[2021-03-18 20:03] LABS: Troponin I Less than 0.010 ng/mL (< 0.028)
[2021-03-18 20:55] LABS: Bacteria/HPF None Seen HPF (None Seen); Bilirubin Negative (Negative); Blood, Urine 1+ (Negative); Clarity Clear (Clear); Glucose, Urine (Dipstick) Normal (Negative); Ketone, Urine Negative (Negative); Leukocyte Negative Leu/uL (Negative); Nitrite Negative (Negative); Protein, Urine (Dipstick) Negative (Neg-Trace); Renal Epithelial 0-3 HPF (None Seen); Specific Gravity, Urine 1.009 (1.002-1.036); Squamous Epithelial 0-3 HPF (0-3); Urobilinogen Normal mg/dL (Less than 2); WBC/HPF 0-3 HPF (0-3); pH, Urine 6.5 (5.0-9.0)
== END 2021-03-18 20:51 | disposition home or self-care (01) ==
LOC: ERS 16:40
DX: R07.89 Other chest pain (principal); E78.5 Hyperlipidemia, unspecified; K21.9 Gastro-esophageal reflux disease without esophagitis; I10 Essential (primary) hypertension; F17.210 Nicotine dependence, cigarettes, uncomplicated; Z79.899 Other long term (current) drug therapy
CPT/HCPCS: 36415; 71045; 80053; 81003; 81015; 83690; 84484; 85025; 85379; 93005

== ENCOUNTER 2022-05-27 11:02 | Observation (INO) | payer MEDICARE, MEDICAID ==
[2022-05-27 12:08] LABS: Band 1 % (5-11); Eosinophils 1 % (0-10); Hemoglobin 15.6 g/dL (12.0-16.0); Lymphocytes 28 % (21-51); MDiff Complete? YES; Mean Corpuscular HGB CONC 31.9 g/dL (32.0-36.0); Mean Corpuscular Hemoglobin 33.2 pg (27.0-31.0); Mean Platelet Volume 9.6 fL (7.4-10.4); Monocytes 1 % (0-10); Neutrophil 69 % (42-75); Platelet Count 144 thou/uL (130-400); Platelet Morphology Comment Appears Adequate; RBC Distribution Width 12.3 % (11.5-14.5); RBC Morphology Normal; Red Blood Cell (RBC) Count 4.71 mill/uL (4.20-5.40); White Blood Cell (WBC) Count 9.6 thou/uL (4.8-10.8)
[2022-05-27 12:14] LABS: ALT (SGPT) 27 U/L (8-55); AST (SGOT) 26 U/L (5-34); Albumin 4.1 g/dL (3.4-4.8); Alkaline Phosphatase 87 U/L (40-110); Anion Gap 16 mmol/L (10-20); BUN (Urea Nitrogen) 14 mg/dL (9.8-20.1); Bilirubin, Total 0.4 mg/dL (0.2-1.2); Calc. Creatinine Clearance 0 mL/min (70-130); Calcium 9.3 mg/dL (7.8-10.44); Carbon Dioxide 21 mmol/L (23-31); Chloride 108 mmol/L (98-107); Estimated GFR 80; Globulin 3.2 g/dL (2.4-3.5); Glucose 150 mg/dL (80-115); Potassium 4.8 mmol/L (3.5-5.1); Protein, Total 7.3 g/dL (5.8-8.1); Sodium 140 mmol/L (136-145)
[2022-05-27] MEDS ORDERED: Nitroglycerin 2% Ointment 1 INCH/1 GM Packet ONE (13:20)
[2022-05-27 15:06] LABS: Bacteria/HPF None Seen HPF (None Seen); Bilirubin Negative (Negative); Blood, Urine 1+ (Negative); Clarity Clear (Clear); Glucose, Urine (Dipstick) Normal (Negative); Ketone, Urine Negative (Negative); Leukocyte Negative Leu/uL (Negative); Nitrite Negative (Negative); Protein, Urine (Dipstick) Negative (Neg-Trace); RBC/HPF 0-3 HPF (0-3); Specific Gravity, Urine 1.008 (1.002-1.036); Squamous Epithelial None Seen HPF (0-3); Urobilinogen Normal mg/dL (Less than 2); WBC/HPF 0-3 HPF (0-3); pH, Urine 6.5 (5.0-9.0)
[2022-05-27] MEDS ORDERED: HumaLOG 300 UNITS/3 ML VIAL SC PRN ×2 (17:19)
[2022-05-27] MEDS ORDERED: Dextrose 50% Abboject 50 ML SYRINGE SLOW IVP PRN (17:19)
[2022-05-27] MEDS ORDERED: Dextrose 5% in Water 1,000 ML IV PRN (17:19)
[2022-05-27] MEDS ORDERED: Nitroglycerin 0.4 MG TAB (25 Tab Bottle) SL PRN (17:20)
[2022-05-27] MEDS ORDERED: Ondansetron PF 4 MG/2 ML Vial IVP PRN (17:25)
[2022-05-27] MEDS ORDERED: Acetaminophen 325 MG TAB PO PRN (17:25)
[2022-05-27] MEDS ORDERED: Senokot S 8.6-50 MG TAB PO PRN (17:25)
[2022-05-27] MEDS ORDERED: Ondansetron ODT 4 MG TAB PO PRN (17:25)
[2022-05-27] MEDS ORDERED: Sodium Chloride 0.9% 1,000 ML IV SCH (17:30)
[2022-05-27] MEDS ORDERED: Nicotine 14 MG PATCH TD SCH (18:00)
[2022-05-27 18:12] LABS: Magnesium 2.1 mg/dL (1.6-2.6); Troponin I Less than 0.010 ng/mL (< 0.028)
[2022-05-27] MEDS ORDERED: hydrALAZINE 20 MG/ML VIAL SLOW IVP PRN (18:19)
[2022-05-27 19:24] LABS: SARS-CoV-2 NAA Rapid Test Not Detected (NotDetected)
[2022-05-27] MEDS ORDERED: Nicotine 14 MG PATCH ONE (19:42)
[2022-05-27] MEDS ORDERED: Mirtazapine 15 MG TAB PO SCH (21:00)
[2022-05-27] MEDS ORDERED: Atorvastatin Calcium 20 MG TAB PO SCH (21:00)
[2022-05-27 21:08] LABS: Troponin I Less than 0.010 ng/mL (< 0.028)
[2022-05-28 07:20] LABS: ALT (SGPT) 23 U/L (8-55); AST (SGOT) 14 U/L (5-34); Albumin 3.8 g/dL (3.4-4.8); Alkaline Phosphatase 73 U/L (40-110); Anion Gap 11 mmol/L (10-20); BUN (Urea Nitrogen) 13 mg/dL (9.8-20.1); Bilirubin, Total 0.6 mg/dL (0.2-1.2); Calc. Creatinine Clearance 0 mL/min (70-130); Calcium 8.7 mg/dL (7.8-10.44); Carbon Dioxide 27 mmol/L (23-31); Cardiac Risk 2.5 (Less than 4.5); Chloride 109 mmol/L (98-107); Cholesterol 156 mg/dl (< 200 Desired); Estimated GFR 95; Globulin 2.6 g/dL (2.4-3.5); Glucose 113 mg/dL (80-115); HDL Cholesterol 63 mg/dL (>60 Neg Risk); LDL Cholesterol, Calculated 72 mg/dL; Potassium 3.8 mmol/L (3.5-5.1); Protein, Total 6.4 g/dL (5.8-8.1); Sodium 143 mmol/L (136-145); Triglycerides 104 mg/dL (Less than 150)
[2022-05-28 08:01] LABS: #Basophils 0.1 thou/uL (0.0-0.2); #Eosinphils 0.1 thou/uL (0.0-0.7); #Lymphocytes 3.3 thou/uL (1.20-3.40); #Monocytes 0.9 thou/uL (0.11-0.59); #Neutrophils 8.4 thou/uL (1.40-6.50); %Basophils 0.6 % (0.0-1.0); %Eosinophils 0.6 % (0.0-10.0); %Monocytes 6.7 % (0.0-10.0); %Neutrophils 66.1 % (42.0-75.0); Hemoglobin 14.8 g/dL (12.0-16.0); Mean Corpuscular HGB CONC 32.7 g/dL (32.0-36.0); Platelet Count 211 thou/uL (130-400); RBC Distribution Width 11.8 % (11.5-14.5); Red Blood Cell (RBC) Count 4.49 mill/uL (4.20-5.40); White Blood Cell (WBC) Count 12.7 thou/uL (4.8-10.8)
[2022-05-28] MEDS ORDERED: Amlodipine 5 MG TAB PO SCH (09:00)
[2022-05-28] MEDS ORDERED: Aspirin Chewable 81 MG TAB PO SCH (09:00)
[2022-05-28] MEDS ORDERED: Regadenoson 0.4 MG/5 ML SYRINGE ONE (09:04)
== END 2022-05-27 16:59 | disposition home or self-care (01) ==
LOC: ERS 11:02 → ERHOLD 16:59
PROVIDERS: ADMIT Family Medicine; ATTEND Family Medicine
DX: R07.9 Chest pain, unspecified (principal); I10 Essential (primary) hypertension; E78.5 Hyperlipidemia, unspecified; E11.10 Type 2 diabetes mellitus with ketoacidosis without coma; K21.9 Gastro-esophageal reflux disease without esophagitis; F17.210 Nicotine dependence, cigarettes, uncomplicated; Z79.84 Long term (current) use of oral hypoglycemic drugs; Z79.899 Other long term (current) drug therapy; Z20.822 Contact with and (suspected) exposure to COVID-19
CPT/HCPCS: 71045; 78452; 80053; 80061; 82962; 83036; 83690; 83735; 84484 ×2; 85025; 93005; 93017; A9500; U0002; 36415; 36416; 81003; 81015; J7050

== ENCOUNTER 2022-06-04 12:40 | Outpatient (CLI) | payer MEDICARE, MEDICAID | END 2022-06-04 12:41 | disposition home or self-care (01) | LOC: MRI 12:40 | PROVIDERS: ATTEND Nurse Practitioner Family | DX: M54.16 Radiculopathy, lumbar region (principal); M48.061 Spinal stenosis, lumbar region without neurogenic claudication; M43.16 Spondylolisthesis, lumbar region | CPT/HCPCS: 72120; 72148 ==